=== PATIENT | female | born 1995 | race Caucasian/White ===

== ENCOUNTER 2022-09-11 01:03 | Emergency (ER) | payer BC, OTHER ==
[2022-09-11] MEDS ORDERED: Lactated Ringers 1,000 ML IV ONE (01:39)
[2022-09-11] MEDS ORDERED: Ondansetron 4 MG/2 ML SDV IVPUSH ONE (01:39)
[2022-09-11] MEDS ORDERED: Sodium Chloride 0.9% 10 ML Syringe FLUSH PRN (01:40)
[2022-09-11] MEDS ORDERED: Sodium Chloride 0.9% 1,000 ML IV SCH (02:00)
[2022-09-11 03:28] VITALS: BP 116/66; PULSE 74
== END 2022-09-11 03:42 | disposition home or self-care (01) ==
LOC: JP.ED 01:03
DX: O21.9 Vomiting of pregnancy, unspecified (principal); Z3A.13 13 weeks gestation of pregnancy
CPT/HCPCS: 96361; 96374; 99283; J2405; J3490; J7030

== ENCOUNTER 2022-09-11 19:19 | Emergency (ER) | payer OTHER ==
[2022-09-11 19:53] VITALS: BP 129/82; PULSE 65
[2022-09-11] MEDS ORDERED: Pantoprazole 40 MG Vial IVPUSH ONE (21:24)
[2022-09-11] MEDS ORDERED: Metoclopramide 10 MG/2 ML SDV IVPUSH ONE (21:24)
== END 2022-09-11 23:13 | disposition home or self-care (01) ==
LOC: JP.ED 19:19
DX: O21.9 Vomiting of pregnancy, unspecified (principal); O99.611 Diseases of the digestive system complicating pregnancy, first trimester; K29.70 Gastritis, unspecified, without bleeding; K21.9 Gastro-esophageal reflux disease without esophagitis; Z88.0 Allergy status to penicillin; Z3A.13 13 weeks gestation of pregnancy
CPT/HCPCS: 96374; 96375; 99284; C9113; J2765